=== PATIENT | male | born 1945 | race Two or more races ===

== ENCOUNTER 2023-10-01 17:28 | Emergency (ER) | payer OTHER, MEDICAID ==
[~2023-10-01] VITALS: Ht 162.6 cm; Wt 79.4 kg
[2023-10-01 17:39] VITALS: TEMP 98.3
[2023-10-01 18:37] LABS: BASOPHILS % (AUTO) 0.7 % (0.0-2.0); EOSINOPHILS # (AUTO) 0.2 K/uL (0.0-0.7); EOSINOPHILS % (AUTO) 2.5 % (0.0-6.0); HEMATOCRIT 37 % (39-51); HEMOGLOBIN 12.2 g/dL (13.5-17.5); LYMPHOCYTES # (AUTO) 0.9 K/uL (0.8-4.8); MEAN CORPUSCULAR HEMOGLOBIN 30 PG (26.0-33.0); MEAN CORPUSCULAR HGB CONC 33 g/dl (31.0-36.0); MEAN CORPUSCULAR VOLUME 90 fL (80-96); MONOCYTES # (AUTO) 0.6 K/uL (0.1-1.30); MONOCYTES % (AUTO) 8.8 % (2.0-12.0); NEUTROPHILS # (AUTO) 4.9 K/uL (1.8-8.9); PLATELET COUNT (AUTO) 241 K/uL (150-450); RED BLOOD CELL COUNT(AUTO) 4.15 MIL/uL (4.5-6.0); RED CELL DISTRIBUTION WIDTH 13.6 % (11.5-15.0); WHITE BLOOD COUNT (AUTO) 6.7 K/uL (4.3-11.0)
[2023-10-01 18:46] LABS: CARBON DIOXIDE 28 mmol/L (21-32); CHLORIDE 105 mmol/L (98-107); GLUCOSE 128 mg/dL (74-106); POTASSIUM 4.5 mmol/L (3.5-5.1); SODIUM SERUM 139 mmol/L (136-145); UREA NITROGEN, BLOOD 33 mg/dL (7-18)
[2023-10-01 18:58] LABS: ALANINE AMINOTRANSFERASE 6 U/L (12-78); ALBUMIN 3.8 g/dL (3.4-5.0); ALKALINE PHOSPHATASE 93 U/L (46-116); ASPARTATE AMINOTRANSFERASE 12 U/L (15-37); BILIRUBIN,DIRECT 0.1 mg/dL (0.0-0.2); BILIRUBIN,TOTAL 0.5 mg/dL (0.2-1.0); NT-PRO BNP 332 pg/mL (0-125); TOTAL PROTEIN, SERUM 7.5 g/dL (6.4-8.2)
[2023-10-01] MEDS: hydrALAZINE HCL IV 20 MG VIAL IV ONE (22:21)
[2023-10-01] MEDS: FUROSEMIDE 20 MG/2 ML VIAL IV ONE (22:21)
[2023-10-01 23:06] VITALS: BP 156/87; O2SAT 97
== END 2023-10-01 23:08 ==
LOC: ER 17:48
DX: R60.0 Localized edema (principal); I10 Essential (primary) hypertension; G20.A1 Parkinson's disease without dyskinesia, without mention of fluctuations; F02.80 Dementia in other diseases classified elsewhere, unspecified severity, without behavioral disturbance, psychotic disturbance, mood disturbance, and anxiety; Z88.8 Allergy status to other drugs, medicaments and biological substances
CPT/HCPCS: 99285; 93970; 96374; 71045; 96375; 93005; 85025; 80048; 80076; 36415; 84484; 83880; J1940; J0360

== ENCOUNTER 2024-07-03 19:35 | Emergency (ER) | payer OTHER, MEDICAID ==
[~2024-07-03] VITALS: Ht 154.9 cm; Wt 76.2 kg
[2024-07-03 19:49] VITALS: TEMP 98.1
[2024-07-03] MEDS ORDERED: KETOROLAC TROMETHAMINE 15 MG/ML VIAL ONE (19:59)
[2024-07-03] MEDS ORDERED: LIDOCAINE VISCOUS 2% UD 15 ML UDC ONE (19:59)
[2024-07-03] MEDS ORDERED: PANTOPRAZOLE 40 MG VIAL ONE (19:59)
[2024-07-03] MEDS ORDERED: MAG HYDROX/AL HYDROX/SIMETH 30 ML UDC ONE (19:59)
[2024-07-03] MEDS ORDERED: FAMOTIDINE/PF INJ 20 MG/2 ML VIAL IV ONE (19:59)
[2024-07-03] MEDS ORDERED: METOCLOPRAMIDE HCL 10 MG/2 ML VIAL ONE (19:59)
[2024-07-03] MEDS: PANTOPRAZOLE 40 MG VIAL IV ONE (20:12)
[2024-07-03] MEDS: METOCLOPRAMIDE HCL 10 MG/2 ML VIAL IV ONE (20:12)
[2024-07-03] MEDS: FAMOTIDINE/PF INJ 20 MG/2 ML VIAL IV ONE (20:12)
[2024-07-03 20:20] LABS: BASOPHILS % (AUTO) 0.5 % (0.0-2.0); EOSINOPHILS # (AUTO) 0.2 K/uL (0.0-0.7); EOSINOPHILS % (AUTO) 4.7 % (0.0-6.0); HEMATOCRIT 37 % (39-51); HEMOGLOBIN 12.3 g/dL (13.5-17.5); LYMPHOCYTES # (AUTO) 1.2 K/uL (0.8-4.8); LYMPHOCYTES % (AUTO) 23.2 % (20.0-44.0); MEAN CORPUSCULAR HEMOGLOBIN 30 PG (26.0-33.0); MEAN CORPUSCULAR HGB CONC 33 g/dl (31.0-36.0); MEAN CORPUSCULAR VOLUME 92 fL (80-96); MONOCYTES # (AUTO) 0.5 K/uL (0.1-1.30); MONOCYTES % (AUTO) 10.2 % (2.0-12.0); NEUTROPHILS # (AUTO) 3.2 K/uL (1.8-8.9); NEUTROPHILS % (AUTO) 61.4 % (43.0-81.0); PLATELET COUNT (AUTO) 215 K/uL (150-450); RED BLOOD CELL COUNT(AUTO) 4.07 MIL/uL (4.5-6.0); RED CELL DISTRIBUTION WIDTH 14.1 % (11.5-15.0); WHITE BLOOD COUNT (AUTO) 5.2 K/uL (4.3-11.0)
[2024-07-03] MEDS: LIDOCAINE VISCOUS 2% UD 15 ML UDC MM ONE (20:30)
[2024-07-03] MEDS: KETOROLAC TROMETHAMINE 15 MG/ML VIAL IV ONE (20:30)
[2024-07-03] MEDS: MAG HYDROX/AL HYDROX/SIMETH 30 ML UDC PO ONE (20:30)
[2024-07-03 20:49] LABS: ALANINE AMINOTRANSFERASE < 6 U/L (12-78); ALBUMIN 3.6 g/dL (3.4-5.0); ALKALINE PHOSPHATASE 74 U/L (46-116); ASPARTATE AMINOTRANSFERASE 11 U/L (15-37); BILIRUBIN,DIRECT 0.1 mg/dL (0.0-0.2); BILIRUBIN,TOTAL 0.5 mg/dL (0.2-1.0); CALCIUM, SERUM 9.2 mg/dL (8.5-10.1); CARBON DIOXIDE 25 mmol/L (21-32); CHLORIDE 101 mmol/L (98-107); CREATININE 1.2 mg/dL (0.6-1.3); GLUCOSE 119 mg/dL (74-106); LIPASE 27 U/L (16-77); SODIUM SERUM 135 mmol/L (136-145); TOTAL PROTEIN, SERUM 7.4 g/dL (6.4-8.2); UREA NITROGEN, BLOOD 30 mg/dL (7-18)
[2024-07-03 22:10] VITALS: O2SAT 96
[2024-07-03] MEDS ORDERED: hydrALAZINE HCL 50 MG TABLET ONE (22:14)
[2024-07-03 22:18] VITALS: BP 192/71
[2024-07-03] MEDS: hydrALAZINE HCL 25 MG TABLET PO ONE (22:18)
== END 2024-07-04 00:03 ==
LOC: ER 19:39
DX: R10.13 Epigastric pain (principal); R11.2 Nausea with vomiting, unspecified; G20.A1 Parkinson's disease without dyskinesia, without mention of fluctuations; I10 Essential (primary) hypertension; Z86.69 Personal history of other diseases of the nervous system and sense organs; Z88.8 Allergy status to other drugs, medicaments and biological substances
CPT/HCPCS: 99285; 96374; 96375; 93005; 85025; 80048; 83690; 80076; 36415; 84484 ×2; J1885; J1308; J2765; J7030; J2470

== ENCOUNTER 2024-07-26 13:54 | Emergency (ER) | payer OTHER, MEDICAID ==
[~2024-07-26] VITALS: Ht 154.9 cm; Wt 74.4 kg
[2024-07-26 14:38] LABS: CALCIUM, SERUM 8.9 mg/dL (8.5-10.1); CARBON DIOXIDE 26 mmol/L (21-32); CHLORIDE 104 mmol/L (98-107); CREATININE 1.1 mg/dL (0.6-1.3); GLUCOSE 103 mg/dL (74-106); SODIUM SERUM 141 mmol/L (136-145); UREA NITROGEN, BLOOD 25 mg/dL (7-18)
[2024-07-26 14:40] LABS: BASOPHILS % (AUTO) 0.8 % (0.0-2.0); EOSINOPHILS # (AUTO) 0.1 K/uL (0.0-0.7); EOSINOPHILS % (AUTO) 1.4 % (0.0-6.0); HEMATOCRIT 34 % (39-51); HEMOGLOBIN 11.5 g/dL (13.5-17.5); LYMPHOCYTES # (AUTO) 0.7 K/uL (0.8-4.8); LYMPHOCYTES % (AUTO) 13.2 % (20.0-44.0); MEAN CORPUSCULAR HEMOGLOBIN 31 PG (26.0-33.0); MEAN CORPUSCULAR HGB CONC 34 g/dl (31.0-36.0); MEAN CORPUSCULAR VOLUME 92 fL (80-96); MONOCYTES # (AUTO) 0.5 K/uL (0.1-1.30); MONOCYTES % (AUTO) 8.9 % (2.0-12.0); NEUTROPHILS # (AUTO) 4.3 K/uL (1.8-8.9); NEUTROPHILS % (AUTO) 75.7 % (43.0-81.0); PLATELET COUNT (AUTO) 212 K/uL (150-450); RED BLOOD CELL COUNT(AUTO) 3.72 MIL/uL (4.5-6.0); WHITE BLOOD COUNT (AUTO) 5.6 K/uL (4.3-11.0)
[2024-07-26 14:44] LABS: ALANINE AMINOTRANSFERASE < 6 U/L (12-78); ALBUMIN 3.5 g/dL (3.4-5.0); ALKALINE PHOSPHATASE 73 U/L (46-116); ASPARTATE AMINOTRANSFERASE 9 U/L (15-37); BILIRUBIN,DIRECT 0.1 mg/dL (0.0-0.2); BILIRUBIN,TOTAL 0.7 mg/dL (0.2-1.0); TOTAL PROTEIN, SERUM 7.1 g/dL (6.4-8.2)
[2024-07-26] MEDS: IV NS 0.9% 500 ML BAG IV ONE (15:27)
[2024-07-26 17:58] VITALS: BP 153/77; TEMP 98.3; O2SAT 97
== END 2024-07-26 17:40 | disposition short-term general hospital (02) ==
LOC: ER 13:56
DX: R55 Syncope and collapse (principal); E86.0 Dehydration; I95.9 Hypotension, unspecified; I10 Essential (primary) hypertension; G20.A1 Parkinson's disease without dyskinesia, without mention of fluctuations
CPT/HCPCS: 36415; 71045-TC; 80048-TC; 80076-TC; 84484-TC; 85025-TC